=== PATIENT | male | born 1960 | race Caucasian/White ===

== ENCOUNTER 2022-09-02 05:30 | Inpatient (IN) | payer OTHER ==
[2022-08-19 10:19] LABS: BASOPHILS % (AUTO) 0.5 % (0.0-2.0); EOSINOPHILS # (AUTO) 0.1 K/uL (0.0-0.4); EOSINOPHILS % (AUTO) 1.9 % (0.0-4.0); HEMATOCRIT 48.1 % (36-54); HEMOGLOBIN 16.2 g/dL (14.0-18.0); LYMPHOCYTES # (AUTO) 1.6 K/uL (1.0-5.5); LYMPHOCYTES % (AUTO) 23.3 % (20.5-51.5); MEAN CORPUSCULAR HEMOGLOBIN 31 pg (27-31); MEAN CORPUSCULAR HGB CONC 34 % (32-36); MEAN CORPUSCULAR VOLUME 92 fL (79.0-98.0); MONOCYTES # (AUTO) 0.5 K/uL (0.0-1.0); MONOCYTES % (AUTO) 7.8 % (1.7-9.3); NEUTROPHILS # (AUTO) 4.5 K/uL (1.8-7.7); NEUTROPHILS % (AUTO) 66.5 % (40.0-70.0); PLATELET COUNT (AUTO) 223 K/uL (130-430); RED BLOOD CELL COUNT(AUTO) 5.24 MIL/uL (4.2-6.2); RED CELL DISTRIBUTION WIDTH 13.8 % (9.0-15.0); WHITE BLOOD COUNT (AUTO) 6.8 K/uL (4.8-10.8)
[2022-08-19 10:52] LABS: ALBUMIN 3.7 g/dL (3.4-4.8); CALCIUM 8.7 mg/dL (8.4-11.0); CREATININE 0.89 mg/dL (0.55-1.30); TOTAL BILIRUBIN 0.4 mg/dL (0.0-1.0)
[2022-08-19 10:53] LABS: PROTHROMBIN TIME 10.7 SECS (9.5-12.5)
[~2022-09-02] VITALS: Ht 180.3 cm; Wt 105.7 kg
[2022-09-02] MEDS ORDERED: CEFAZOLIN SOD 2 GM in D5W 50 ML IV ONE (06:30)
[2022-09-02] MEDS ORDERED: DEXAMETHASONE SOD PHOSPHATE 4 MG/ML VIAL ONE (07:25)
[2022-09-02] MEDS ORDERED: LR 1,000 ML IV.SOLN IV ONE (07:25)
[2022-09-02] MEDS ORDERED: DESFLURANE 15 MIN GAS INH ONE (07:25)
[2022-09-02] MEDS ORDERED: SUGAMMADEX SODIUM 200 MG/2 ML VIAL IV ONE (07:25)
[2022-09-02] MEDS ORDERED: PROPOFOL 200MG/ 20ML VIAL (DIPRIVAN) IV ONE (07:25)
[2022-09-02] MEDS ORDERED: VANCOMYCIN HCL 1000 MG/VIAL IV ONE (07:25)
[2022-09-02] MEDS ORDERED: BUPIVACAINE /PF 0.5% 30 ML VIAL ONE (07:25)
[2022-09-02] MEDS ORDERED: NS IRRIG SOLN 1000 ML IR ONE (07:25)
[2022-09-02] MEDS ORDERED: EPINEPHrine HCL 1 MG/ML VIAL ONE (07:25)
[2022-09-02] MEDS ORDERED: ONDANSETRON HCL 4 MG/2 ML VIAL ONE (07:25)
[2022-09-02] MEDS ORDERED: KETOROLAC TROMETHAMINE 30 MG VIAL ONE (07:25)
[2022-09-02] MEDS ORDERED: ROCURONIUM BROMIDE 10 MG/ML (ZEMURON) ONE (07:25)
[2022-09-02] MEDS ORDERED: MORPHINE SULFATE 10MG/10ML PF AMP ONE (07:25)
[2022-09-02] MEDS ORDERED: MIDAZOLAM HCL/PF 2 MG/2 ML SYRINGE ONE (07:25)
[2022-09-02] MEDS ORDERED: NS 1000 ML IV.SOLN IV ONE (07:25)
[2022-09-02] MEDS ORDERED: TRANEXAMIC ACID 1,000 MG/10 ML VIAL ONE (07:25)
[2022-09-02] MEDS ORDERED: ACETAMINOPHEN I.V. 1000 MG 100 ML IV ONE (07:34)
[2022-09-02] MEDS ORDERED: ONDANSETRON HCL 4 MG/2 ML VIAL IVP PRN ×2 (08:30→11:45)
[2022-09-02] MEDS ORDERED: MEPERIDINE HCL/PF 25 MG/ML DISP.SYRIN IVP PRN (08:30)
[2022-09-02] MEDS ORDERED: NALOXONE HCL 0.4 MG/ML AMP (NARCAN) IVP PRN ×4 (08:30→10:30)
[2022-09-02] MEDS ORDERED: HYDROmorphone 1 MG/ML INJ. CARTRIDGE IVP PRN ×5 (08:30→11:00)
[2022-09-02] MEDS ORDERED: LR 1,000 ML IV SCH (08:30)
[2022-09-02] MEDS ORDERED: METOCLOPRAMIDE HCL 10 MG/2 ML VIAL IVP PRN ×2 (08:30→10:30)
[2022-09-02] MEDS ORDERED: DIPHENHYDRAMINE INJ 50 MG/ML VIAL IVP PRN (08:30)
[2022-09-02] MEDS ORDERED: LACTULOSE 20 GM/30 ML UDC PO PRN (10:30)
[2022-09-02] MEDS ORDERED: DIPHENHYDRAMINE HCL 25 MG CAPSULE PO PRN (10:30)
[2022-09-02] MEDS ORDERED: BISACODYL 10 MG/SUPPOSITORY RC PRN (10:30)
[2022-09-02] MEDS ORDERED: LORATADINE 10 MG TABLET PO PRN (11:00)
[2022-09-02] MEDS ORDERED: oxyCODONE HCL 5 MG TABLET PO PRN ×2 (11:00)
[2022-09-02] MEDS ORDERED: traMADol HCL HCL 50 MG TABLET (ULTRAM) PO PRN (11:00)
[2022-09-02 11:45] VITALS: BP_SYST 127
--- NOTE | 2022-09-02 11:46 | NUR ---
RECEIVED PATIENT FROM OR NURSE, S/P R JUICE, ALERT AND ORIENTED ABLE TO VERBALIZE NEEDS, NO C/O PAIN AT THIS TIME, ABLE TO PROVIDE MEDICAL HISTORY AND [id number] IN ASSESSMENT, DRESSING ON RIGHT HIP DIT, NO BLEEDING OR SWELLING OBSERVED, B SCD IN PLACE, VS 116/66 IN 60 PULSE OX 99 RR 16 TEMP 98.1, NO FURTHER CONCERNS AT THIS TIME, WILL ASSUME ALL CARE OF PATIENT
[2022-09-02 11:49] VITALS: BP_SYST 116
--- NOTE | 2022-09-02 13:30 | NUR ---
patient c/o nausea after consuming clear liquid lunch, prn zofran administered per emar
[2022-09-02] MEDS: ceFAZolin SODIUM 2 GM in D5W 50 ML IV SCH ×2 (13:44→21:25)
[2022-09-02] MEDS: KETOROLAC TROMETHAMINE 10 MG TABLET (TORADOL) PO SCH ×2 (15:20→21:36)
[2022-09-02] MEDS: ACETAMINOPHEN 500 MG TABLET PO SCH ×2 (15:21→21:24)
[2022-09-02 15:24] VITALS: BP_SYST 126
--- NOTE | 2022-09-02 18:16 | NUR ---
patient sitting in bed, c/o nausea but declining antiemetic medication at this time, no c/o pain, educated on the purpose of prn medications for symptom managment, patient verbalized understanding, will endorse care to pm nurse
--- NOTE | 2022-09-02 19:15 | NUR ---
INITIAL NOTES; endorsed by pt. S/P rt. hip arthroplasty today. no distress. call light within reach.
[2022-09-02 20:00] VITALS: BP_SYST 120
[2022-09-02] MEDS: SENNOSIDES/DOCUSATE SODIUM 1 TAB TABLET(SENOKOT-S) PO SCH (21:24)
--- NOTE | 2022-09-02 21:30 | NUR ---
NOTES: pt. awake, alert, vomited@ 500 cc total emesis. IV lock on left hand. rt. hip dressing intact. due medications given. instructed on use of IS up to 1500. call light at bedside. able to reposition self. Addendum: 09/03/22 at 0220 by Saundra Crane RN late entry: pt.vomited around 500 cc on change of shift.
--- NOTE | 2022-09-03 00:10 | NUR ---
NOTES: Pt. awakened.IV to TKO after IV antibiotic. no complaints noted.voiding per urinal.
[2022-09-03 02:25] VITALS: BP_SYST 113
--- NOTE | 2022-09-03 03:00 | NUR ---
NOTES: condition unchanged. no complaints.
[2022-09-03] MEDS: ceFAZolin SODIUM 2 GM in D5W 50 ML IV SCH (05:08)
[2022-09-03] MEDS: KETOROLAC TROMETHAMINE 10 MG TABLET (TORADOL) PO SCH (05:11)
[2022-09-03 05:27] LABS: HEMATOCRIT 40.6 % (36-54); HEMOGLOBIN 13.4 g/dL (14.0-18.0)
[2022-09-03 05:45] LABS: CALCIUM 8.6 mg/dL (8.4-11.0); CREATININE 0.98 mg/dL (0.55-1.30)
[2022-09-03] MEDS: ACETAMINOPHEN 500 MG TABLET PO SCH ×2 (06:35→13:27)
--- NOTE | 2022-09-03 06:54 | NUR ---
CLOSING NOTES; still dozing on and off. ordered regular diet for breakfast. IV site patent. no post op pain. rt. hip dressing dry and intact. using IS in between. for further assistance. IV lock call light at bedside.
[2022-09-03 07:05] VITALS: BP_SYST 116
--- NOTE | 2022-09-03 07:20 | NUR ---
OPENING NOTES Patient laying in bed resting. A/O x 4, [place] speaking. Patient breathing even and unlabored on room air. No pain, no distress, no SOB. Patient is on a Regular diet. Patient has L hand 20g patent on SL. Patient is on bedrest, but gets up with assist (weight bearing as tolerated). Bed is locked in lowest position. Call light within reach, all needs met, will continue with plan of care.
[2022-09-03] MEDS: SENNOSIDES/DOCUSATE SODIUM 1 TAB TABLET(SENOKOT-S) PO SCH (08:23)
[2022-09-03] MEDS ORDERED: ASPIRIN 81 MG TAB.CHEW PO SCH (09:00)
--- NOTE | 2022-09-03 10:39 | NUR ---
TRINH called Xin Sierra at [facility] to discuss DCP and needs. left VM with call back #. will follow up
[2022-09-03] MEDS ORDERED: CELECOXIB 200 MG CAPSULE PO SCH (11:00)
[2022-09-03 11:02] VITALS: BP_SYST 102
[2022-09-03 11:33] VITALS: BP_SYST 102
--- NOTE | 2022-09-03 12:14 | NUR ---
CM faxed HH referral to TRINH Sierra at f# [phone]. Xin will arrange home health services. will follow up for final details.
--- NOTE | 2022-09-03 13:05 | NUR ---
PATIENT IS RESTING, BREATHING UNLABORED ON RA. MILD PAIN ON RIGHT HIP 2/10. PAIN MED ADMINISTER PER ORDER. NO DISTRESS, NO SOB. IV REMOVED, CALL LIGHT WITHIN REACH. BED IS LOCKED IN LOWEST POSITION. ALL NEED MET. WILL CONTINUE WITH PLAN OF CARE.
--- NOTE | 2022-09-03 13:45 | NUR ---
Patient HH services will be arranged through [facility]. 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
--- NOTE | 2022-09-03 14:58 | NUR ---
D/C Patient Patient given medication reconciliation form and D/C instructions. Exit Care provided. Patient verbalized understanding. MD GONZALES discussed with patient the results and treatment provided. Ambulatory with steady gait for discharge to home. Patient in stable condition, ID band removed. IV catheter removed, intact and dressing applied, no active bleeding. Patient educated on pain management. All belongings sent with patient.
--- NOTE | 2022-09-03 15:31 | NUR ---
PHYSICAL THERAPY CO-SIGN The Physical Therapy Progress Notes documented by [employer] have been reviewed. Reviewed/Co-Signed by: Bassam Bowen Documentation Done by:MISTY RUDD Addendum: 09/03/22 at 1531 by Bassam Bowen PT Amended: Links added.
== END 2022-09-03 14:55 | disposition home health service (06) | DRG 470 ==
LOC: SMU 05:30 → EDSTATUS 07:30 → SMU 11:35
PROVIDERS: ADMIT Orthopaedic Surgery Sports Medicine; ATTEND Orthopaedic Surgery Sports Medicine
PROC: 0SR90JA Replacement of Right Hip Joint with Synthetic Substitute, Uncemented, Open Approach (ICD-10-PCS; principal; 2022-09-02 07:30)
DX: M16.11 Unilateral primary osteoarthritis, right hip (principal)
CPT/HCPCS: 36415; 71046-TC; 73502; 76001; 80048; 80053; 83051; 85014; 85025; 85610-TC; 85730-TC; 87081; 88304; 88311; 93005; 96379; 97110-GP; 97116-GP; 97530-GP; A4649; C1713; C1776; J0131; J0171; J0690; J1100; J1885; J2274; J2405; J2704; J3370; J3465; J3490; J7030; J7060; J7120